=== PATIENT | male | born 1980 | race Caucasian/White ===

== ENCOUNTER 2020-05-18 21:33 | Emergency (ER) | payer BC ==
[~2020-05-18] VITALS: Ht 172.7 cm; Wt 74.4 kg
== END 2020-05-18 23:28 | disposition home or self-care (01) ==
LOC: ER 21:33
DX: S61.422A Laceration with foreign body of left hand, initial encounter (principal); W26.0XXA Contact with knife, initial encounter; Y93.89 Activity, other specified; Y92.89 Other specified places as the place of occurrence of the external cause; Y99.8 Other external cause status

== ENCOUNTER 2020-06-19 12:30 | Outpatient (CLI) | payer BC | END 2020-06-19 12:42 | disposition home or self-care (01) | LOC: LAB 12:30 | PROVIDERS: ATTEND Specialist | DX: D64.89 Other specified anemias (principal); B20 Human immunodeficiency virus [HIV] disease; E03.8 Other specified hypothyroidism; E11.65 Type 2 diabetes mellitus with hyperglycemia; N39.0 Urinary tract infection, site not specified; E78.2 Mixed hyperlipidemia; Z11.4 Encounter for screening for human immunodeficiency virus [HIV] ==

== ENCOUNTER 2020-09-11 06:29 | Outpatient (CLI) | payer BC | END 2020-09-11 06:37 | disposition home or self-care (01) | LOC: LAB 06:29 | PROVIDERS: ATTEND Specialist | DX: J45.991 Cough variant asthma (principal); E78.2 Mixed hyperlipidemia; D64.1 Secondary sideroblastic anemia due to disease; D68.8 Other specified coagulation defects; D51.0 Vitamin B12 deficiency anemia due to intrinsic factor deficiency; Z12.11 Encounter for screening for malignant neoplasm of colon; Z20.828 Contact with and (suspected) exposure to other viral communicable diseases ==

== ENCOUNTER 2024-08-07 05:30 | Emergency (ER) | payer BC ==
[~2024-08-07] VITALS: Ht 172.7 cm; Wt 74.8 kg
[2024-08-07] MEDS ORDERED: ESCITALOPRAM OX20 MG PO (06:04)
[2024-08-07] MEDS ORDERED: BUPROPION XL300 MG PO (06:04)
[2024-08-07] MEDS ORDERED: METFORMIN HCL500 M4 PO (06:04)
[2024-08-07] MEDS ORDERED: ROSUVASTATIN CA40 MG PO (06:04)
[2024-08-07] MEDS ORDERED: FINASTERIDE1 MG PO (06:04)
[2024-08-07] MEDS ORDERED: AZITHROMYCIN 500 MG TABLET PO ONE (06:15)
[2024-08-07] MEDS ORDERED: DEXAMETHASONE SODIUM PHOSPHATE 4 MG/ML VIAL IM ONE (06:15)
[2024-08-07] MEDS ORDERED: ZITHROMAX500 MG PO (07:54)
[2024-08-07] MEDS ORDERED: TUSNEL LIQUID178 ML PO (07:54)
[2024-08-07 08:03] LABS: HEMATOCRIT 41.2 % (39.0-48.0); HEMOGLOBIN 13.7 g/dL (13-16.00); MEAN CELL VOLUME 85.2 fL (80.0-100.00); MEAN CORPUSCULAR HEMOGLOBIN 28.2 pg (27.00-32.0); MEAN CORPUSCULAR HGB CONC 33.1 g/dl (32.0-36.0); PLATELET COUNT 282 K/uL (150-450); RED BLOOD COUNT 4.84 M/uL (4.00-6.00); RED CELL DISTRIBUTION WIDTH 12.4 % (11.5-14.5)
== END 2024-08-07 07:58 | disposition home or self-care (01) ==
LOC: ER 05:32
PROVIDERS: General Practice
DX: J06.9 Acute upper respiratory infection, unspecified (principal); Z20.822 Contact with and (suspected) exposure to COVID-19